=== PATIENT | male | born 2000 ===

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

== ENCOUNTER 2022-08-06 01:05 | Emergency (ER) | payer MEDICAID ==
[~2022-08-06] VITALS: Ht 175.3 cm; Wt 72.6 kg
--- NOTE | 2022-08-06 01:18 | ED Abdominal Pain ---
General Chief Complaint: Abdominal/GI Problems Stated Complaint: UPPER ABD PAIN,NAUSEA,VOMITING Source of Information: Patient Exam Limitations: No Limitations History of Present Illness Date Seen by Provider: Aug 06, 2022 Time Seen by Provider: 01:18 Initial Comments Marcus is a 21-year-old male who presents to the emergency department with a chief complaint of epigastric abdominal pain, nausea and vomiting for 2 to 3 days. Patient states symptoms started earlier this week with vomiting and progressive pain. He states now every time he tries to eat something he gets worse abdominal pain. He denies diarrhea, black or bloody stool. He has been trying to take some Pepto for the symptoms. He denies any blood in his emesis. The last time he vomited was yesterday. He is very nauseous currently. He has a history of appendectomy as well as cholecystectomy. He has had EGD in the past. He is currently not on any acid reducers. He denies fevers, chills, productive cough or shortness of breath. He does not drink alcohol. He currently rates his pain at a "10". Denies urinary issues, back pain, history of pancreatitis. He states when he had his gallbladder out he thinks he had a gallstone. All other review of systems reviewed and negative except as stated Timing/Duration: 2-3 Days Severity/Quality: Severe, Sharp Location: Epigastric Radiation: No Radiation Activities at Onset: None Modifying Factors: Worsens With Eating Associated Symptoms: Nausea/Vomiting Allergies and Home Medications Allergies Coded Allergies: NKANo Known Allergies (Verified Allergy, Mild, 04/08/09) Patient Home Medication List Home Medication List Reviewed: Yes Dicyclomine HCl (Dicyclomine HCl) 10 Mg Capsule, 10 MG PO TID Prescribed by: ANUJA ZIMMERMAN on 03/01/202033 Hydrocodone Bit/Acetaminophen (Lortab 5 Mg Tablet) 1 Tab Tab, 1 TAB PO Q4-6HR PRN for PAIN-MODERATE Prescribed by: ALEXIS VENCES on 06/02/19 1144 Ondansetron (Ondansetron Odt) 4 Mg Tab.rapdis, 8 MG PO Q6H PRN for NAUSEA/VOMITING Prescribed by: RAMY ROMERO on 05/30/19 1701 Pantoprazole Sodium (Protonix) 40 Mg Tablet.dr, 40 MG PO DAILY Prescribed by: ALEXIS VENCES on 09/07/19 1347 Pantoprazole Sodium (Protonix) 40 Mg Tablet.dr, 40 MG PO DAILY Prescribed by: SUKH HANNON on 08/06/22 022 Sucralfate (Carafate) 1 Gram Tablet, 1 GM PO QIDACHS Prescribed by: SUKH HANNON on 08/06/22219 Tramadol HCl (Tramadol HCl) 50 Mg Tablet, 50 MG PO Q6H PRN for PAIN Prescribed by: ROGELIO MCFARLANE on 07/15/192045 Tramadol HCl (Tramadol HCl) 50 Mg Tablet, 50 MG PO Q4H PRN for PAIN-MODERATE (5- 7) Prescribed by: KEYLA CASTRO on 09/07/19 1508 Review of Systems Review of Systems Constitutional: see HPI EENTM: No Symptoms Reported Respiratory: No Symptoms Reported Cardiovascular: No Symptoms Reported Gastrointestinal: Abdominal Pain, Nausea, Vomiting Genitourinary: No Symptoms Reported Musculoskeletal: no symptoms reported Skin: no symptoms reported All Other Systems Reviewed Negative Unless Noted: Yes Past Grhaoik-Kwhfye-Ogghgk Hx Immunizations Up To Date PED Vaccines UTD: Yes Seasonal Allergies Seasonal Allergies: No Past Medical History Surgery/Hospitalization HX: T/A,CHRISTI, APPY Surgeries: Yes Adenoidectomy, Appendectomy, Gallbladder, Tonsillectomy Respiratory: No Cardiac: No Neurological: No Reproductive Disorders: No Sexually Transmitted Disease: No Genitourinary: No Gastrointestinal: No Musculoskeletal: No Endocrine: No HEENT: No Cancer: No Psychosocial: No Integumentary: No Blood Disorders: No Family Medical History Diabetes mellitus 21 MOTHER maternal grandmotther maternal grandfather Hypertension paternal granmother paternal grandfather No Pertinent Family Hx Physical Exam Vital Signs Vital Signs - First Documented 08/06/22 01:10 Temp 35.9 Pulse 80 Resp 20 B/P (MAP) 142/85 (104) Pulse Ox 99 O2 Delivery Room Air Capillary Refill : Height/Weight/BMI Height: 5'7.00" Weight: 135lbs. 0.00oz. 61.109143eq; 23.00 BMI Method:Stated General Appearance: WD/WN, no apparent distress HEENT: PERRL/EOMI Respiratory: lungs clear, normal breath sounds, no respiratory distress, no accessory muscle use Cardiovascular: regular rate, rhythm Gastrointestinal: normal bowel sounds, soft, guarding (voluntary), tenderness (epigastric) Extremities: normal range of motion, non-tender, normal inspection, no pedal edema Neurologic/Psychiatric: no motor/sensory deficits, alert, normal mood/affect, oriented x 3 Skin: normal color, warm/dry Progress/Results/Core Measures Results/Orders Lab Results Laboratory Tests Test 08/06/22 01:15 Range/Units White Blood Count 6.5 4.3-11.0 10^3/uL Red Blood Count 4.92 4.30-5.52 10^6/uL Hemoglobin 14.4 13.3-17.7 g/dL Hematocrit 42 40-54 % Mean Corpuscular Volume 85 80-99 fL Mean Corpuscular Hemoglobin 29 25-34 pg Mean Corpuscular Hemoglobin Concent 35 32-36 g/dL Red Cell Distribution Width 12.2 10.0-14.5 % Platelet Count 294 130-400 10^3/uL Mean Platelet Volume 10.0 9.0-12.2 fL Immature Granulocyte % (Auto) 1 % Neutrophils (%) (Auto) 50 42-75 % Lymphocytes (%) (Auto) 33 12-44 % Monocytes (%) (Auto) 10 0-12 % Eosinophils (%) (Auto) 6 0-10 % Basophils (%) (Auto) 1 0-10 % Neutrophils # (Auto) 3.2 1.8-7.8 10^3/uL Lymphocytes # (Auto) 2.2 1.0-4.0 10^3/uL Monocytes # (Auto) 0.7 0.0-1.0 10^3/uL Eosinophils # (Auto) 0.4 H 0.0-0.3 10^3/uL Basophils # (Auto) 0.0 0.0-0.1 10^3/uL Immature Granulocyte # (Auto) 0.0 0.0-0.1 10^3/uL Sodium Level 143 135-145 MMOL/L Potassium Level 3.5 L 3.6-5.0 MMOL/L Chloride Level 107 98-107 MMOL/L Carbon Dioxide Level 25 21-32 MMOL/L Anion Gap 11 5-14 MMOL/L Blood Urea Nitrogen 8 7-18 MG/DL Creatinine 0.88 0.60-1.30 MG/DL Estimat Glomerular Filtration Rate 127 BUN/Creatinine Ratio 9 Glucose Level 111 H 70-105 MG/DL Calcium Level 9.3 8.5-10.1 MG/DL Corrected Calcium 8.9 8.5-10.1 MG/DL Total Bilirubin 0.9 0.1-1.0 MG/DL Aspartate Amino Transf (AST/SGOT) 24 5-34 U/L Alanine Aminotransferase (ALT/SGPT) 36 0-55 U/L Alkaline Phosphatase 89 40-136 U/L Total Protein 7.2 6.4-8.2 GM/DL Albumin 4.5 3.2-4.5 GM/DL Lipase 21 8-78 U/L My Orders Orders - SUKH HANNON MD Ed Iv/Invasive Line Start (08/06/22 01:24) Cbc With Automated Diff (08/06/22 01:24) Comprehensive Metabolic Panel (08/06/22 01:24) Lipase (08/06/22 01:24) Pantoprazole Injection (Protonix Injecti (08/06/22 01:30) Fentanyl Inj (Sublimaze Injection) (08/06/22 01:30) Ondansetron Injection (Zofran Injectio (08/06/22 01:30) Lactated Ringers (Lr 1000 Ml Iv Solution (08/06/22 01:30) Medications Given in ED Current Medications Medications Dose Ordered Sig/Jazmin Route Start Time Stop Time Status Last Admin Dose Admin Fentanyl Citrate 25 mcg ONCE ONCE IVP 08/06/22 01:30 08/06/22 01:31 DC 08/06/22 01:42 25 MCG Ondansetron HCl 4 mg ONCE ONCE IVP 08/06/22 01:30 08/06/22 01:31 DC 08/06/22 01:42 4 MG Pantoprazole 40 mg ONCE ONCE IV 08/06/22 01:30 08/06/22 01:31 DC 08/06/22 01:41 40 MG Vital Signs/I&O 08/06/22 01:10 Temp 35.9 Pulse 80 Resp 20 B/P (MAP) 142/85 (104) Pulse Ox 99 O2 Delivery Room Air Progress Progress Note : Time: 02:17 Progress Note Patient reevaluated after meds and basic labs. CBC Chem-12 and lipase are all normal. He feels much better after medications. Still has a little bit of burning, will add a GI cocktail before he leaves. Recommended that he go home on Protonix and Carafate. He states he believes Dr. VENCES's who did his gallbladder as well as prior scopes. Patient's abdominal exam is nonacute, no concerns for bowel obstruction, acute pancreatitis, any other acute intra- abdominal pathology. His vital signs are stable. He is not vomiting. He is comfortable with the plan of care, all questions are sought and answered. Patient is stable for discharge. Departure Impression Primary Impression: Abdominal pain Qualified Codes: R10.13 - Epigastric pain Additional Impression: GERD (gastroesophageal reflux disease) Qualified Codes: K21.9 - Gastro-esophageal reflux disease without esophagitis Disposition: HOME, SELF-CARE Condition: Improved Departure-Patient Inst. Decision time for Depature: 02:20 Referrals: CHIKIS MUELLER DO (PCP/Family) Primary Care Physician ALEXIS VENCES MD Patient Instructions: Peptic Ulcers (DC) Add. Discharge Instructions: Avoid spicy, fatty, heavy foods. Take the Carafate 30 minutes before eating. You can take this medication 4 times a day. This will help to coat your stomach and help reduce your pain. Take the Protonix 40 mg at night. Call Dr. VENCES's office on Tuesday for a follow-up appointment as you may need another upper endoscopy to look for ulcers in your esophagus or stomach. Return to the emergency room if you develop a fever, vomiting blood, passing blood in your stool or any other emergent, concerning symptoms. Scripts Pantoprazole Sodium (Protonix) 40 Mg Tablet.dr 40 MG PO DAILY, #30 TAB Prov: SUKH HANNON MD 08/06/22 Sucralfate (Carafate) 1 Gram Tablet 1 GM PO MARIMARDAJEREMY, #60 TAB Prov: SUKH HANNON MD 08/06/22 Work/School Note: Work Release Form Date Seen in the Emergency Department: Aug 05, 2022 Return to Work: Aug 07, 2022 Copy Copies To 1: CHIKIS MUELLER DO Copies To 2: ALEXIS VENCES MD, KATHRYN M MD Aug 06, 2022 01:18
[2022-08-06] MEDS ORDERED: fentaNYL INJ 100 MCG/2 ML AMP IVP ONE (01:30)
[2022-08-06] MEDS ORDERED: PANTOPRAZOLE 40 MG (PROTONIX) VIAL IV ONE (01:30)
[2022-08-06] MEDS ORDERED: LACTATED RINGERS 1,000 ML IV SCH (01:30)
[2022-08-06] MEDS ORDERED: ONDANSETRON 4 MG/2 ML (SDV) Z0FRAN IVP ONE (01:30)
[2022-08-06 01:35] LABS: BASOPHILS % (AUTO) 1 % (0-10); EOSINOPHILS # (AUTO) 0.4 10^3/uL (0.0-0.3); EOSINOPHILS % (AUTO) 6 % (0-10); HEMATOCRIT 42 % (40-54); HEMOGLOBIN 14.4 g/dL (13.3-17.7); LYMPHOCYTES # (AUTO) 2.2 10^3/uL (1.0-4.0); LYMPHOCYTES % (AUTO) 33 % (12-44); MEAN CORPUSCULAR HEMOGLOBIN 29 pg (25-34); MEAN CORPUSCULAR HGB CONC 35 g/dL (32-36); MEAN CORPUSCULAR VOLUME 85 fL (80-99); MONOCYTES # (AUTO) 0.7 10^3/uL (0.0-1.0); MONOCYTES % (AUTO) 10 % (0-12); NEUTROPHILS # (AUTO) 3.2 10^3/uL (1.8-7.8); NEUTROPHILS % (AUTO) 50 % (42-75); PLATELET COUNT 294 10^3/uL (130-400); WHITE BLOOD COUNT 6.5 10^3/uL (4.3-11.0)
[2022-08-06 01:38] LABS: ALBUMIN 4.5 GM/DL (3.2-4.5)
[2022-08-06 01:39] LABS: POTASSIUM 3.5 MMOL/L (3.6-5.0)
[2022-08-06 01:40] LABS: CALCIUM 9.3 MG/DL (8.5-10.1)
[2022-08-06 01:41] LABS: TOTAL PROTEIN 7.2 GM/DL (6.4-8.2)
[2022-08-06 01:43] LABS: BILIRUBIN,TOTAL 0.9 MG/DL (0.1-1.0)
[2022-08-06 01:44] LABS: CREATININE SERUM 0.88 MG/DL (0.60-1.30)
[2022-08-06] MEDS ORDERED: PANT40TA2 PO (02:20)
[2022-08-06] MEDS ORDERED: SUCR1TAB36 PO (02:20)
[2022-08-06] MEDS ORDERED: LIDOCAINE 2% VISCOUS 15 ML UDC PO ONE (02:30)
[2022-08-06] MEDS ORDERED: ANTACID SUSP 30 ML UDC (MYLANTA) PO ONE (02:30)
[2022-08-06] MEDS ORDERED: SUCRALFATE 1 GM (CARAFATE) TAB PO ONE (02:30)
[2022-08-06 02:39] VITALS: BP 132/79
== END 2022-08-06 02:39 | disposition home or self-care (01) ==
LOC: EDUNIT# 01:05 → ER 01:08
DX: K21.9 Gastro-esophageal reflux disease without esophagitis (principal); Z28.310 Unvaccinated for COVID-19
CPT/HCPCS: 36415; 80053; 83690; 85025; 96361; 96374; 96375; 99283

== ENCOUNTER 2023-06-23 16:44 | Emergency (ER) | payer MEDICAID ==
[~2023-06-23] VITALS: Ht 175 cm; Wt 76.0 kg
[~2023-06-23 16:44] MED LIST changes: +DICY-11 PO; -DICY10CA12 PO; +SUCR1TAB36 PO
--- NOTE | 2023-06-23 16:54 | ED Upper Extremity ---
General Chief Complaint: Upper Extremity Stated Complaint: BOTH HANDS INJ, BLUNT TRAUMA Source: patient Exam Limitations: no limitations History of Present Illness Date Seen by Provider: Jun 23, 2023 Time Seen by Provider: 16:46 Initial Comments 22-year-old male presents emerged department today for bilateral hand pain. He had his hands in the windowsill and the window came down and smashed both hands. He has pain at the ulnar aspect the dorsal side of both hands. Swelling in the area. No numbness or tingling. No other injuries. All other systems reviewed and negative except documented per HPI. Voice recognition software was used to help create this chart Allergies and Home Medications Allergies Coded Allergies: NKANo Known Allergies (Verified Allergy, Mild, 04/08/09) Patient Home Medication List Home Medication List Reviewed: Yes Dicyclomine HCl (Dicyclomine HCl) 10 Mg Capsule, 10 MG PO TID Prescribed by: ANUJA ZIMMERMAN on 03/01/202033 Hydrocodone Bit/Acetaminophen (Lortab 5 Mg Tablet) 1 Tab Tab, 1 TAB PO Q4-6HR PRN for PAIN-MODERATE Prescribed by: ALEXIS VENCES on 06/02/19 1144 Hydrocodone/Acetaminophen (Hydrocodone-Acetamin 5-325 mg) 5 Mg-325 Mg Tablet, 1 TAB PO Q4H PRN for PAIN-MODERATE (5-7) Prescribed by: LENORA QUESADA MD on 06/23/23 1739 Ondansetron (Ondansetron Odt) 4 Mg Tab.rapdis, 8 MG PO Q6H PRN for NAUSEA/VOMITING Prescribed by: RAMY ROMERO on 05/30/19 1701 Pantoprazole Sodium (Protonix) 40 Mg Tablet., 40 MG PO DAILY Prescribed by: ALEXIS VENCES on 09/07/19 1347 Pantoprazole Sodium (Protonix) 40 Mg Tablet.dr, 40 MG PO DAILY Prescribed by: SUKH HANNON on 08/06/22219 Sucralfate (Carafate) 1 Gram Tablet, 1 GM PO QIDACHS Prescribed by: SUKH HANNON on 08/06/22219 Tramadol HCl (Tramadol HCl) 50 Mg Tablet, 50 MG PO Q6H PRN for PAIN Prescribed by: ROGELIO MCFARLANE on 12/8/19 2046 Tramadol HCl (Tramadol HCl) 50 Mg Tablet, 50 MG PO Q4H PRN for PAIN-MODERATE (5- 7) Prescribed by: KEYLA CASTRO on 09/07/19 1508 Review of Systems Constitutional: see HPI Past Ifjxcle-Axscbr-Rsufyu Hx Patient Social History Tobacco Use?: No Smoking Status: Never a Smoker Substance use?: No Alcohol Use?: No Pt feels they are or have been: No Immunizations Up To Date PED Vaccines UTD: Yes First/Initial COVID19 Vaccinat: NONE Second COVID19 Vaccination Jonatan: NONE Third COVID19 Vaccination Date: NONE Seasonal Allergies Seasonal Allergies: No Past Medical History Surgery/Hospitalization HX: T/A, CHOLECYSECTOMY, APPENDECTOMY, GERD Surgeries: Yes Adenoidectomy, Appendectomy, Gallbladder, Tonsillectomy Respiratory: No Cardiac: No Neurological: No Reproductive Disorders: No Sexually Transmitted Disease: No Genitourinary: No Gastrointestinal: No Musculoskeletal: No Endocrine: No HEENT: No Cancer: No Psychosocial: No Integumentary: No Blood Disorders: No Family Medical History Diabetes mellitus 19 MOTHER maternal grandmotther maternal grandfather Hypertension paternal granmother paternal grandfather No Pertinent Family Hx Physical Exam Vital Signs Vital Signs - First Documented 06/23/23 16:51 Temp 37.4 Pulse 94 Resp 16 B/P (MAP) 150/97 (114) Pulse Ox 100 O2 Delivery Room Air Capillary Refill : Height, Weight, BMI Height: 5'7.00" Weight: 135lbs. 0.00oz. 61.216131hx; 23.00 BMI Method:Stated General Appearance: WD/WN, no apparent distress Hand: swelling (Dorsal Oxecta bilateral hands just beneath the little fingers is some swelling on both hands. Neurovascular sensory intact. There is bony tenderness without any obvious deformity.) Progress/Results/Core Measures Results/Orders My Orders Vital Signs/I&O Departure Communication (Admissions) Patient x-ray showed bilateral hand fractures at the base of the fifth metacarpal. I spoke with Dr. Plata, he recommends Velcro splint to the right hand hand he traditional ulnar gutter splint to the left hand and orthopedic follow-up in his clinic. The patient's neurovascular and sensory intact bilaterally he has no other injuries. Splints placed and evaluated by myself after, remained neurovascular and sensory intact. Discharged in stable condition with pain medications and close follow-up. Impression Primary Impression: Fracture of fifth metacarpal bone of right hand Qualified Codes: S62.346A - Nondisplaced fracture of base of fifth metacarpal bone, right hand, initial encounter for closed fracture Additional Impression: Fracture of fifth metacarpal bone of left hand Qualified Codes: S62.347A - Nondisplaced fracture of base of fifth metacarpal bone, left hand, initial encounter for closed fracture Disposition: HOME, SELF-CARE Condition: Stable Departure-Patient Inst. Referrals: CHIKIS MUELLER DO (PCP/Family) Primary Care Physician RADHA PLTAA MD Patient Instructions: Hand Fracture ED, Splint Care ED Add. Discharge Instructions: Keep the splint clean, dry. Follow-up with Dr. Plata by calling to schedule an appointment. Take the pain medication as prescribed as needed. Do not drive or make important decisions while taking it as it may make you drowsy. Need to perform light duty at work, no lifting or moving the areas affected. All discharge instructions reviewed with patient and/or family. Voiced understanding. Scripts Hydrocodone/Acetaminophen (Hydrocodone-Acetamin 5-325 mg) 5 Mg-325 Mg Tablet 1 TAB PO Q4H PRN for PAIN-MODERATE (5-7) for 3 Days, #12 TAB Prov: LENORA QUESADA DO 06/23/23 Work/School Note: Work Release Form Date Seen in the Emergency Department: Jun 23, 2023 Return to Work: Jun 24, 2023 Restrictions: No lifting with bilateral hands, light duty. LENORA QUESADA DO Jun 23, 2023 16:53
--- NOTE | 2023-06-23 17:25 | Diagnostic Imaging Report ---
EXAMINATION: Bilateral hands 06/23/2023 INDICATION: Injury bilaterally with pain FINDINGS: 3 views of each hand On the right, there is an intra-articular fracture at the base of the 5th metacarpal with adjacent soft tissue swelling. Displacement of the fracture site is noted. Remaining osseous structures intact. Within the left hand there is a fracture through the mid aspect of the 5th metacarpal with mild apex dorsal angulation. Overlying soft tissue swelling noted. Questionable fracture at the base of the 4th metacarpal also noted. IMPRESSION: 1. Intra-articular fracture of the right 5th proximal metacarpal 2. Angulated fracture of the mid left 5th metacarpal with a questionable fracture at the base of the 4th metacarpal Dictated by: Dictated on workstation # [id number]
[2023-06-23] MEDS ORDERED: morphine INJ 10 MG/ML 1ML (SYR OR VIAL) IM STA (17:30)
[2023-06-23] MEDS ORDERED: ACHD5005 PO (17:39)
[2023-06-23 18:05] VITALS: BP 134/80
== END 2023-06-23 18:04 | disposition home or self-care (01) ==
LOC: EDUNIT# 16:44 → ER 16:46
DX: S62.316A Displaced fracture of base of fifth metacarpal bone, right hand, initial encounter for closed fracture (principal); S62.317A Displaced fracture of base of fifth metacarpal bone, left hand, initial encounter for closed fracture; W20.8XXA Other cause of strike by thrown, projected or falling object, initial encounter
CPT/HCPCS: 29125; 96372